=== PATIENT | male | born 1990 | race Caucasian/White ===

== ENCOUNTER 2017-12-12 19:13 | Emergency (ER) | payer OTHER ==
[~2017-12-12] VITALS: Ht 182.9 cm; Wt 97.1 kg
[2017-12-12 19:38] VITALS: Ht 182.9 cm; Wt 97.1 kg
[2017-12-12 23:39] VITALS: BP 128/83
== END 2017-12-12 23:39 | disposition home or self-care (01) ==
LOC: ED 19:13
DX: T15.91XA Foreign body on external eye, part unspecified, right eye, initial encounter (principal); Z91.013 Allergy to seafood